=== PATIENT | female | born 1965 | race Caucasian/White ===

== ENCOUNTER → 2016-09-28 | Outpatient (CLI) | payer OTHER | END | disposition home or self-care (01) | LOC: LABWHC1 08:54 | PROVIDERS: ATTEND Psychiatry & Neurology Neurology | DX: G40.209 Localization-related (focal) (partial) symptomatic epilepsy and epileptic syndromes with complex partial seizures, not intractable, without status epilepticus (principal) | CPT/HCPCS: 36415; 80177 ==

== ENCOUNTER → 2017-12-04 | Outpatient (CLI) | payer OTHER | END | disposition home or self-care (01) | LOC: LABWHC1 11:19 | PROVIDERS: ATTEND Psychiatry & Neurology Neurology | DX: G40.209 Localization-related (focal) (partial) symptomatic epilepsy and epileptic syndromes with complex partial seizures, not intractable, without status epilepticus (principal) | CPT/HCPCS: 36415; 80177 ==

== ENCOUNTER → 2018-03-25 | Outpatient (CLI) | payer OTHER ==
--- NOTE | 2018-03-25 08:17 | MR ---
MRI CERVICAL SPINE: CLINICAL HISTORY: Neck pain with radiculopathy per order. Neck pain for a few years causing pain or w eakness and numbness into right arm and fingers TECHNIQUE: Multiplanar, multisequence imaging of the cervical spine is performed without IV contrast. COMPARISON: None. FINDINGS: Sagittal images of the cervical spine show the craniocervical junction to appear within nor mal limits. There is AP diameter narrowing of the spinal cord at C5-C6 level. There is grade 1 retrol isthesis of C5 on C6 measured 3 mm. The vertebral body heights are normal. There is mild to moderate disc space narrowing C5-C6 and C6-C7 levels. Posterior spur disc complex effaces anterior thecal sac at C5-C6 level on sagittal images. Smaller adjacent disc herniations are noted on sagittal images. M ild to moderate multilevel anterior spurring mid to lower cervical spine is present. The bone marrow signal intensity is within normal limits. Axial images at the C2-C3 level shows focal right paracentral/foraminal spur disc complex effacing an terolateral thecal sac on axial image 48 causing moderate to advanced right-sided neural foraminal na rrowing. Axial images at the C3-C4 level show mild bilateral neural foraminal narrowing due to uncovertebral f acet arthropathy. Spinal canal is preserved. Axial images at the C4-C5 level show broad-based posterior disc protrusion effacing anterior thecal s ac and causing mild bilateral neural foraminal narrowing. Axial images at the C5-C6 level show most prominent broad-based posterior disc protrusion effacing an terior thecal sac up to ventral surface of spinal cord on axial image 21 and causing moderate left an d mild to moderate right-sided neural foraminal narrowing. Axial images at the C6-C7 level show left paracentral disc protrusion effacing the anterior thecal sa c and causing moderate bilateral neural foraminal narrowing. Axial images at the C7-T1 level are felt within normal limits. IMPRESSION: Multilevel degenerative changes in cervical spine as detailed above. Most prominent findi ngs noted C2-C3 level and C5-C6 level.
== END | disposition home or self-care (01) ==
LOC: RADMRIMAIN 07:21
PROVIDERS: ATTEND Family Medicine
DX: M47.812 Spondylosis without myelopathy or radiculopathy, cervical region (principal)
CPT/HCPCS: 72141

== ENCOUNTER → 2021-06-18 | Outpatient (CLI) | payer OTHER | END | disposition home or self-care (01) | LOC: LABWHC1 08:35 | PROVIDERS: ATTEND Psychiatry & Neurology Neurology | DX: G40.209 Localization-related (focal) (partial) symptomatic epilepsy and epileptic syndromes with complex partial seizures, not intractable, without status epilepticus (principal) | CPT/HCPCS: 36415; 80177 ==

== ENCOUNTER → 2023-01-28 | Outpatient (CLI) | payer OTHER ==
--- NOTE | 2023-01-28 20:01 | BD ---
EXAMINATION TYPE: Axial Bone Density DATE OF EXAM: 01/28/2023 CLINICAL HISTORY: 57 years old Female. ICD-10 CODE: Z13.820 Height: 67" Weight: 219 lbs FRAX RISK QUESTIONS: Alcohol (3 or more units per day): No Family History (Parent hip fracture): No Glucocorticoids (More than 3mos): No (Ex: prednisone, prednisolone, methylprednisolone, dexamethasone, and hydrocortisone). History of Fracture in Adulthood: Yes, unknown tib fib fx (possibly right) Secondary Osteoporosis: 1. Type 1 Diabetes: No 2. Hyperthyroidism: No 3. Menopause before 45: No 4. Malnutrition: No 5. Chronic liver disease: No Rheumatoid Arthritis: No Current Tobacco Use: No RISK FACTORS HISTORY OF: Hip Fracture (Right/Left): No Spine Fracture: No History of Wrist Fracture: No Surgery to Spine/Hip(right/left)/Wrist (right/left): No Family History of Osteoporosis: Yes, mother Active: No Diet low in dairy products/other sources of calcium: No Postmenopausal woman: Yes Lost more than 2 inches in height since high school: No Frequent falls: No Poor Health: No Hyperparathyroidism: No Adrenal Insufficiency: No MEDICATIONS: Prednisone or other steroids: No How Long: Thyroid Medications: Yes Which medication: Levothyroxine How Lon years Osteoporosis Medications: No Additional Medications: levothyroxine, celebrex, keppra Additional History: None EXAM MEASUREMENTS: Bone mineral densitometry was performed using the [employer] System. Bone mineral density as measured about the Lumbar spine is: ----- L1-L4(G/cm2): 1.717 T Score Values are as follows: ----- L1: 2.7 ----- L2: 4.0 ----- L3: 5.2 ----- L4: 5.4 ----- L1-L4: 4.5 Z Score Values are as follows: ----- L1: 2.8 ----- L2: 4.1 ----- L3: 5.2 ----- L4: 5.5 ----- L1-L4: 4.5 Baseline Bone mineral density about the R hip (g/cm2): 1.277 Bone mineral density about the L hip (g/cm2): 1.399 T Score values are as follows: -----R Neck: 1.0 -----L Neck: 2.7 -----R Total: 2.1 -----L Total: 3.1 Z Score values are as follows: -----R Neck: 1.5 -----L Neck: 3.2 -----R Total: 2.2 -----L Total: 3.2 Baseline FRAX%s: The graph provided illustrates a 8.7% chance for a major osteoporotic fx and a 0.1% chance fo r the hips probability for fx in 10 years time. IMPRESSION: Normal (Values between +1 and -1 indicate normal bone mass). Consider repeating this study in 5 year s or sooner if there is some new clinical indication. NOTE: T-SCORE=SD OF THE YOUNG ADULT MEAN.
--- NOTE | 2023-01-29 20:21 | MM ---
Reason for Exam: Screening (asymptomatic). Last mammogram was performed 8 year(s) and 4 month(s) ago. Patient History: Menarche at age 10. Patient has no children. Postmenopausal. Risk Values: Ade 5 year model risk: 1.5%. NCI Lifetime model risk: 8.3%. Prior Study Comparison: 12/04/2009 Bilateral Screening Mammogram, Raul Archer. 03/16/2011 Bilateral MG screening mammo w CAD - 2, Raul Archer. 06/24/2012 Bilateral Screening Mammogram, Raul Archer. 09/25/2012 Bilateral Screening Mammogram, Raul Archer. 10/02/2014 Bilateral Screening Mammogram, Raul Archer. Tissue Density: There are scattered fibroglandular densities. Findings: Analyzed By CAD. Benign low axillary tail lymph nodes on both sides. There is no suspicious group of microcalcifications or new suspicious mass in either breast. Overall Assessment: Negative, BI-RAD 1 Management: Screening Mammogram of both breasts in 1 year. . Patient should continue monthly self-breast exams. A clinical breast exam by your physician is recommended on an annual basis. This exam should not preclude additional follow-up of suspicious palpable abnormalities. Note on Ade scores and lifetime risk: 1. A Ade score greater than 3% is considered moderate risk. If this is the case, consider specialist referral to assess eligibility for a risk reducing agent. 2. If overall lifetime risk for the development of breast cancer is 20% or higher, the patient may qualify for future screening with alternating mammogram and breast MRI. Electronically signed and approved by: Corey Jensen M.D. Radiologist
== END | disposition home or self-care (01) ==
LOC: RADMAMWWP 14:13
PROVIDERS: ATTEND Family Medicine
DX: Z12.31 Encounter for screening mammogram for malignant neoplasm of breast (principal); Z13.820 Encounter for screening for osteoporosis; Z78.0 Asymptomatic menopausal state
CPT/HCPCS: 77063; 77067; 77080